=== PATIENT | female | born 1955 | race Caucasian/White ===

== ENCOUNTER 2018-01-02 07:58 | Outpatient (CLI) | payer OTHER ==
--- NOTE | 2018-01-02 11:41 | MRI ---
MRI LEFT SHOULDER: Date: 01-02-18 Provided Clinical History: Left shoulder pain. FINDINGS: There is a small full thickness, partial width tear involving the far anterior distal fibers of the s upraspinatus tendon of at the footplate. The components of the rotator cuff appear otherwise intact. The long head biceps tendon appears intact and is normally located. The glenolabrum and glenohumeral articular cartilage are suboptimally evaluated in the absence of joint distention but appear grossly normal. The amount of fluid within the glenohumeral joint appears physiologic. There is conspicuous subacromi al/subdeltoid bursal fluid. Acromioclavicular joint osteoarthrosis is demonstrated with mass effect u ganesh the subjacent supraspinatus. Stress related periarticular marrow edema is seen about the AC joint . Regional marrow and muscular signal appear otherwise normal. Rotator cuff muscular volume appears pre served. IMPRESSION: 1. Small full thickness, partial width tear involving the far anterior distal supraspinatus tendon at the footplate. 2. Conspicuous subacrominal subdeltoid bursal fluid which may reflect bursitis or may be related to t he full thickness nature of the tear. 3. Acromioclavicular joint osteoarthritis. POS: [facility]
== END 2018-01-02 07:59 | disposition home or self-care (01) ==
LOC: SCSMRI 07:58
PROVIDERS: ATTEND Orthopaedic Surgery
DX: M75.102 Unspecified rotator cuff tear or rupture of left shoulder, not specified as traumatic (principal); M19.012 Primary osteoarthritis, left shoulder

== ENCOUNTER 2018-01-19 08:14 | Outpatient (CLI) | payer OTHER ==
[2018-01-19 09:43] LABS: Hemoglobin 13.3 g/dL (12.0-16.0); Mean Corpuscular HGB CONC 34.4 g/dL (32.0-36.0); Mean Corpuscular Hemoglobin 31.5 pg (27.0-31.0); Mean Corpuscular Volume 91.6 fL (78.0-98.0); Mean Platelet Volume 8.5 fL (7.4-10.4); Platelet Count 254 thou/uL (130-400); RBC Distribution Width 12.2 % (11.5-14.5); Red Blood Cell (RBC) Count 4.22 mill/uL (4.20-5.40); White Blood Cell (WBC) Count 9.6 thou/uL (4.8-10.8)
== END 2018-01-19 08:15 | disposition home or self-care (01) ==
LOC: LABBT 08:14
PROVIDERS: ATTEND Orthopaedic Surgery
DX: Z01.818 Encounter for other preprocedural examination (principal); M75.102 Unspecified rotator cuff tear or rupture of left shoulder, not specified as traumatic
CPT/HCPCS: 85027; 93005; 93010

== ENCOUNTER 2018-01-22 07:34 | Day surgery (SDC) | payer OTHER ==
[2018-01-19 08:24] VITALS: BMI 33.6
[2018-01-22] MEDS ORDERED: CEFAZOLIN/Water 2 GM/20 ML SYRINGE ONE (09:26)
[2018-01-22] MEDS ORDERED: Midazolam HCl 2 mg/2 ml Vial ONE (09:28)
[2018-01-22] MEDS ORDERED: Fentanyl 100 MCG/2 ML VIAL ONE ×2 (09:28→11:20)
[2018-01-22] MEDS ORDERED: Promethazine HCl 25 MG/ML VIAL IM PRN (09:36)
[2018-01-22] MEDS ORDERED: Zolpidem Tartrate 5 MG TAB PO PRN (09:36)
[2018-01-22] MEDS ORDERED: Ondansetron PF 4 MG/2 ML Vial IVP PRN (09:36)
[2018-01-22] MEDS ORDERED: traMADol HCl 50 MG TAB PO PRN ×2 (09:36)
[2018-01-22] MEDS ORDERED: Ketorolac Tromethamine 30 MG/ML VIAL IVP PRN (09:36)
[2018-01-22] MEDS ORDERED: Ropivacaine 0.2% 550 ML 550 ML NERVE BLCK SCH (09:36)
[2018-01-22] MEDS ORDERED: HYDROcodone/Acetaminophen 5/325 mg Tablet PO PRN ×2 (09:36)
[2018-01-22] MEDS ORDERED: Fentanyl 100 MCG/2 ML VIAL IV PRN (09:37)
[2018-01-22] MEDS ORDERED: Scopolamine 1.5 mg/72 hour Patch ONE (09:47)
[2018-01-22] MEDS ORDERED: Bupivacaine/Epinephrine 0.25% 30 ML VIAL ONE (11:49)
[2018-01-22] MEDS ORDERED: SUGAMMADEX SODIUM 200 MG/2 ML VIAL ONE (12:37)
--- NOTE | 2018-01-22 12:52 | OP ---
DATE OF PROCEDURE: 01/22/2018 PREOPERATIVE DIAGNOSIS: Left high grade partial thickness rotator cuff tear of supraspinatus. POSTOPERATIVE DIAGNOSES: High grade near full thickness tear, left rotator cuff supraspinatus. PROCEDURE PERFORMED: Arthroscopic rotator cuff repair. STAFF: Zen Delgado M.D. AUTO BUMPER MECHANIC: None. ANESTHESIA: Herbie. The patient received a general endotracheal intubation with an interscalene block. ESTIMATED BLOOD LOSS: 30 mL. TOURNIQUET TIME: None. IMPLANTS: Arthrex 5.5 corkscrew and a 4.75 SwiveLock. ANTIBIOTICS: Ancef 2 grams. COMPLICATIONS: None. HISTORY OF PRESENT ILLNESS: Mrs. Oliver is a pleasant 62-year-old female who presented to me with ongoing left shoulder pain. The patient is right hand dominant, has been present for over 5 months. She had pain in her arm, pain with activities, pain can be an 8/10. The patient had a full thickness tear of the supraspinatus footprint which I discussed with the patient the risks and benefits of an arthroscopic rotator cuff repair of her left shoulder to include pain, scar, bleeding, infection, damage to vital structures, decreased range of motion or strength, continued pain despite surgical intervention, failure of repair, damage to vital structures, loss of life or limb. The patient understood the risks and benefits of the procedure and elected to proceed. PROCEDURE IN DETAIL: Time out was performed designating the patient's left upper extremity as the operative site based on sight, consents, markings. The patient placed in a beach chair position with bony points well padded. The patient had a posterior working portal and anterior working portal placed. I visualize intraarticularly, there were some degenerative labral changes noted. No full thickness biceps tear, was intact subscapularis and intact capsule with insertion on the humerus. No glenoid defects, no loose bodies. I moved from the intraarticular space to subacromial, debrided off the bursa, took down the patient's CA ligament, exposed the acromion There was a soft spot in the rotator cuff, which fell into the defect of the tear with a probe. I cleaned up and debrided the footprint for placement of my anchor, I placed a 5.5 corkscrew into the footprint. I then placed sutures passing through the rotator cuff in a horizontal mattress fashion, placed 2 horizontal matress stitches, placed a second anchor double row transosseous equivalent, a SwiveLock laterally, tightened the sutures ensured they were tight, cut the tendon, took final pictures of the rotator cuff repair washed and closed with 3- 0 nylon. The patient will be in a sling. Elbow, wrist, and hand motion. She will follow up with me in 2 weeks, begin shoulder range of motion. TRIXIE
[2018-01-22] MEDS ORDERED: Ondansetron ODT 4 MG TAB ONE (14:19)
== END 2018-01-22 16:35 | disposition home or self-care (01) ==
LOC: SDC 07:34
PROVIDERS: ATTEND Orthopaedic Surgery
PROC: 0LQ24ZZ Repair Left Shoulder Tendon, Percutaneous Endoscopic Approach (ICD-10-PCS; principal; 2018-01-22)
DX: M75.112 Incomplete rotator cuff tear or rupture of left shoulder, not specified as traumatic (principal); Z88.8 Allergy status to other drugs, medicaments and biological substances
CPT/HCPCS: A4306; C1713; J0131; J2250; J2795; J3010; Q0162

== ENCOUNTER 2018-06-05 10:02 | Outpatient (CLI) | payer OTHER ==
--- NOTE | 2018-06-05 12:58 | MRI ---
MRI CERVICAL SPINE: HISTORY: Left-sided arm and shoulder pain. FINDINGS: Multiplanar, multisequence, noncontrast-enhanced MRI images cervical spine obtained. The spinal cord is unremarkable with no evidence of masses or lesions. There is interosseous hemangioma of the C7 level. C1-2: Unremarkable. C2-3: Unremarkable. C3-4: There is a minimal broad-based disk bugle without evidence of significant central stenosis. T he neural foramen are patent. C4-5: There is mild central disk bulge without evidence of significant central stenosis. The neural foramen are patent. C5-6: There is some disk desiccation. There is a broad-based disk-osteophyte complex minimally but not significantly compressing the thecal sac. The right neural foramen is patent. There is moderate to severe left C5-6 neural foraminal narrowing due to uncovertebral osteophyte hypertrophy. C6-7: There is mild bilateral C6-7 neural foraminal narrowing due to uncovertebral osteophyte hypert rophy. C7-T1: Unremarkable. IMPRESSION: Left C5-6 neural foraminal narrowing due to uncovertebral osteophyte hypertrophy. I would suspect th at the patient may have left C6 nerve root symptoms. Does this correlate clinically? If so, this is due to the compression of the left C6 nerve root as it passes through the neural foramen. POS: [facility]
== END 2018-06-05 10:03 | disposition home or self-care (01) ==
LOC: TBSIIMAG 10:02
PROVIDERS: ATTEND Orthopaedic Surgery
DX: M47.22 Other spondylosis with radiculopathy, cervical region (principal); M48.02 Spinal stenosis, cervical region
CPT/HCPCS: 72141

== ENCOUNTER 2018-10-28 10:36 | Outpatient (CLI) | payer OTHER ==
--- NOTE | 2018-10-28 11:46 | MRI ---
MRI cervical spine noncontrast: DATE: 10/28/2018 HISTORY: 63-year-old female with "M 99.81 foraminal stenosis of cervical region" bilateral cervical radiculopa thy. COMPARISON: 06/05/2018 FINDINGS: Moderately large hemangioma of bone at C7 vertebral body. 0.7 cm T2 hyperintense and T1 hypointense l esion within the odontoid process. Subchondral cyst versus hemangioma of bone with atypical signal characteristic. Vertebral body heights are maintained. No major subluxation. Mild and moderate facet osteoarthrosis bilaterally at upper and mid C-spine. Mild disc space narrowing at C5-6. Moderate disc space narrowing at C6-7. The rest of disc spaces are maintained. Cervical spinal cord is normal in size and signal. Unremarkable perivertebral spaces. C1-2: No central stenosis. C2-3: No central or neural foraminal stenosis. C3-4: No central or neural foraminal stenosis. C4-5: Tiny central disc protrusion in close proximity to ventral surface of spinal cord without cord displacement. No high-grade central spinal canal stenosis. No right-sided neural foraminal stenosis. Mild to moderate left neural foraminal stenosis. C5-6: Broad-based disc-osteophytic bar complex or disc bulge, asymmetrically larger at left lateral a spect. The lateral components continue as bilateral small to moderate-sized uncinate process osteophytes, encroaching upon bilateral neural foramina. Mild to moderate right neural foraminal sten osis. Severe left neural foraminal stenosis. Probably chronically impinging on left exiting C6 nerve root. Mild central spinal canal stenosis. C6-7: Mild, shallow broad-based disc-osteophytic bar complex causes mild central spinal canal stenosi s. Small bilateral uncinate process osteophytes cause bilateral somewhat severe neural foraminal stenosis. C7-T1: Normal. No major interval change 06/05/2018. IMPRESSION: 1. Mild cervical spondylosis with a few lower levels of mild degenerative disc disease, and mid and u pper mild-moderate facet osteoarthrosis. 2. High-grade neural foraminal stenosis on the left at C5-6 and bilaterally at C6-7.
== END 2018-10-28 10:37 | disposition home or self-care (01) ==
LOC: TBSIIMAG 10:36
PROVIDERS: ATTEND Nurse Practitioner Family
DX: M48.02 Spinal stenosis, cervical region (principal); M50.30 Other cervical disc degeneration, unspecified cervical region; M47.812 Spondylosis without myelopathy or radiculopathy, cervical region
CPT/HCPCS: 72141

== ENCOUNTER 2018-12-30 07:16 | Day surgery (SDC) | payer OTHER ==
[2018-12-23 10:32] VITALS: BMI 33.6
[2018-12-30] MEDS ORDERED: Scopolamine 1.5 mg/72 hour Patch ONE (08:13)
[2018-12-30] MEDS ORDERED: Lidocaine 2% Jelly 5 ML TUBE ONE (08:50)
[2018-12-30] MEDS ORDERED: Fentanyl 100 MCG/2 ML VIAL ONE ×3 (08:50→11:12)
[2018-12-30] MEDS ORDERED: HYDROmorphone 0.5 MG/0.5 ML SYRINGE ONE (08:50)
[2018-12-30] MEDS ORDERED: Midazolam HCl 2 mg/2 ml Vial ONE (08:50)
[2018-12-30] MEDS ORDERED: Morphine 2 MG/ML SYRINGE ONE (12:15)
--- NOTE | 2018-12-30 12:31 | OP ---
DATE OF PROCEDURE: 12/30/2018 TAILOR APPRENTICE: Remy Carrington PA-C INDICATION: Pain. DIAGNOSIS: Cervical radiculopathy. PROCEDURE PERFORMED: Anterior cervical diskectomy and fusion, C5 to C7. ANESTHESIA: General. DESCRIPTION OF PROCEDURE: The patient was brought into the operating room and placed under general anesthesia. She was placed on table in a supine position. A transverse incision was planned over the lateral aspect of the neck on the right. After prepping and draping and after an appropriate preoperative pause, the incision was created. The underlying platysma muscle was identified and incised. A blunt tissue plane anterior to the sternocleidomastoid muscle was used to gain access to the prevertebral space. Self-retaining retractors were placed on the wound for optimal exposure. After confirming the appropriate level with C-arm fluoroscopy, an annulotomy was performed in the C6-C7 disk space. All disk material as well as anterior and posterior osteophytes were removed. After decompressing the C6-C7 segment 6-mm lordotic PEEK cage packed with allograft and autograft material was placed within the interbody space. We then redirected our attention to C5-C6 where again an annulotomy was performed. All disk material as well as anterior and posterior osteophytes were removed. After complete decompression, a 7-mm lordotic PEEK cage packed with allograft and autograft material was placed within the interbody space. Cervical plate was then fashioned to the front of spine and secured with a total of 6 screws. Midline and lateral structures were inspected and found to be free from significant trauma. The wound was irrigated. Hemostasis was maintained throughout. The wound was then closed in anatomic layers and a pressure dressing was applied. There were no known procedural complications. Job ID: [id number]
[2018-12-30] MEDS ORDERED: HYDROcodone/Acetaminophen 5/325 mg Tablet ONE ×3 (13:23→14:01)
[2018-12-30] MEDS ORDERED: Promethazine HCl 25 MG/ML VIAL ONE (13:26)
== END 2018-12-30 14:23 | disposition home or self-care (01) ==
LOC: SDC 07:16
PROVIDERS: ATTEND Neurological Surgery
PROC: 0RG20A0 Fusion of 2 or more Cervical Vertebral Joints with Interbody Fusion Device, Anterior Approach, Anterior Column, Open Approach (ICD-10-PCS; principal; 2018-12-30)
PROC: 0RT30ZZ Resection of Cervical Vertebral Disc, Open Approach (ICD-10-PCS; principal; 2018-12-30)
DX: M54.12 Radiculopathy, cervical region (principal); M48.02 Spinal stenosis, cervical region; Z88.1 Allergy status to other antibiotic agents
CPT/HCPCS: 76000; C1713; C1776; J0690; J1170; J2250; J2270; J2550; J3010